=== PATIENT | male | born 1995 | race Caucasian/White ===

== ENCOUNTER 2022-12-29 17:57 | Emergency (ER) | payer SELFPAY ==
[~2022-12-29] VITALS: Ht 172.7 cm; Wt 84.1 kg
[2022-12-29 17:59] VITALS: TEMP 98.6
[2022-12-29 20:49] VITALS: BP 112/64; PULSE 91; RESP 18
[2022-12-29] MEDS ORDERED: PERTUSS(ACELL),DIPH,TET VAC/PF 0.5 ML SYRINGE IM. ONE (22:15)
[2022-12-29] MEDS ORDERED: AMOX1TAB16 PO (22:17)
== END 2022-12-29 22:47 | disposition home or self-care (01) ==
LOC: EMS 17:57
DX: S61.511A Laceration without foreign body of right wrist, initial encounter (principal); S61.512A Laceration without foreign body of left wrist, initial encounter; X58.XXXA Exposure to other specified factors, initial encounter; Y93.89 Activity, other specified; Y92.89 Other specified places as the place of occurrence of the external cause; Y99.8 Other external cause status
CPT/HCPCS: 12002; 90471; 90715; 99283